=== PATIENT | male | born 1970 | race Caucasian/White ===

== ENCOUNTER 2024-03-13 19:23 | Emergency (ER) | payer OTHER ==
--- NOTE | 2024-03-13 20:16 | ED ---
Extremity Problem HPI - General Source: patient, RN notes reviewed Mode of arrival: ambulatory Limitations: no limitations <Olivia Jeffers - Last Filed: 03/13/24 20:15> <Glendy Bauer - Last Filed: 03/15/24 00:20> - General Chief complaint: Extremity Problem,Nontraumatic Stated complaint: R leg pain Time Seen by Provider: 03/13/24 19:39 - History of Present Illness Initial comments: Quick [id number] male presents emergency for chief complaint of right lower extremity pain that has been worsening over the past 3 to 4 weeks. States that pain of his right calf will worsen throughout the day and is most severe at night. He denies any recent injuries or falls. Denies history of DVT, PE, or blood clotting disorders. He is denying chest pain, shortness of breath, difficulty breathing. (Olivia Jeffers) 53-year-old presents emergency department for right lower extremity pain. S tates has been going on for 3 weeks. He denies any injuries. States that the pain starts in his anterior knee, wraps around to the posterior aspect and down the back of his calf. The pain is worse throughout the day but states that when he gets home and lays down at night, his swelling goes away. No history of DVT or PE. Denies any chest pain or shortness of breath. No redness or warmth to t he extremity. He has not been taking anything for pain control. No other alleviating, precipitating modifying (Glendy Bauer) - Related Data Allergies Allergy/AdvReac Type Severity Reaction Status Date / Time No Known Allergies Allergy Verified 03/13/24 19:49 Review of Systems ROS Other: All systems not noted in ROS Statement are negative. <Olivia Jeffers - Last Filed: 03/13/24 20:15> ROS Other: All systems not noted in ROS Statement are negative. <Glendy Bauer - Last Filed: 03/15/24 00:20> ROS Statement: Those systems with pertinent positive or pertinent negative responses have been documented in the HPI. Past Medical History Past Medical History: No Reported History Past Surgical History: No Surgical Hx Reported Smoking Status: Never smoker <Olivia Jeffers - Last Filed: 03/13/24 20:15> General Exam Limitations: no limitations <Olivia Jeffers - Last Filed: 03/13/24 20:15> General appearance: alert, in no apparent distress Extremities exam: Present: other (Mild joint effusion. No redness or warmth. 2+ DP and PT pulses. Compartments are soft. Full normal range of motion at the hip and ankle. Intact sensation over the medial, lateral and dorsal bilateral lower extremities.) <Glendy Bauer - Last Filed: 03/15/24 00:20> - General Exam Comments Initial Comments: Visual Physical Exam Vital signs reviewed General: Well-appearing, nontoxic, no acute distress. Head: Normocephalic, atraumatic Eyes: PERRLA, EOMI ENT: Airway patent Chest: Nonlabored breathing Skin: No visual rash, normal skin tone Neuro: Alert and oriented 3 Musculoskeletal: No gross abnormalities (Olivia Jeffers) Course Vital Signs 03/13/24 03/13/24 19:46 22:39 Temperature 98.7 F 97.8 F Pulse Rate 76 60 Respiratory 16 18 Rate Blood Pressure 144/69 134/78 O2 Sat by Pulse 98 100 Oximetry Medical Decision Making <Olivia Jeffers - Last Filed: 03/13/24 20:15> <Glendy Bauer - Last Filed: 03/15/24 00:20> - Medical Decision Making I completed the quick note portion of this chart signed Olivia Jeffers PA-C (Olivia Jeffers) Was pt. sent in by a medical professional or institution ([facility], BUSINESS COORDINATOR, urgent care, hospital, or detention...) When possible be specific @ -No Did you speak to anyone other than the patient for history (EMS, parent, family, police, friend...)? What history was obtained from this source @ -No Did you review nursing and triage notes (agree or disagree)? Why? @ -I reviewed and agree with nursing and triage notes Were old charts reviewed (outside hosp., previous admission, EMS record, old EKG, old radiological studies, urgent care reports/EKG's, detention records)? Report findings @ -No old charts were reviewed Differential Diagnosis (chest pain, altered mental status, abdominal pain women, abdominal pain men, vaginal bleeding, weakness, fever, dyspnea, syncope, headache, dizziness, GI bleed, back pain, seizure, CVA, palpatations, mental health, musculoskeletal)? @ -Differential Musculoskeletal Muscular strain, contusion, ligament sprain, fracture, arthritis, septic arthritis, bursitis, cellulitis, muscle spasm, nerve compression, DVT, arterial occlusion, herpes zoster, electrolyte abnormality, tumor.... This is not meant to be in all inclusive list EKG interpreted by me (3pts min.). @ -Not done X-rays interpreted by me (1pt min.). @ -None done CT interpreted by me (1pt min.). @ -None done U/S interpreted by me (1pt. min.). @ -Yes and demonstrates no DVT What testing was considered but not performed or refused? (CT, X-rays, U/S, labs)? Why? @ -X-ray was recommended however patient refused What meds were considered but not given or refused? Why? @ -None Did you discuss the management of the patient with other professionals (professionals i.e. , PA, BUSINESS COORDINATOR, lab, RT, psych nurse, social media strategist, distiller, teacher, army officer, major case detective)? Give summary @ -No Was smoking cessation discussed for >3mins.? @ -No Was critical care preformed (if so, how long)? @ -No Were there social determinants of health that impacted care today? How? (Homelessness, low income, unemployed, alcoholism, drug addiction, transportation, low edu. Level, literacy, decrease access to med. care, residential, rehab)? @ -No Was there de-escalation of care discussed even if they declined (Discuss DNR or withdrawal of care, Hospice)? DNR status @ -No What co-morbidities impacted this encounter? (DM, HTN, Smoking, COPD, CAD, Cancer, CVA, ARF, Chemo, Hep., AIDS, mental health diagnosis, sleep apnea, morbid obesity)? @ -None Was patient admitted / discharged? Hospital course, mention meds given and route, prescriptions, significant lab abnormalities, going to OR and other pertinent info. @ -Upon arrival patient seen and evaluated in room 29. Thorough history and physical exam was performed. Ultrasound was performed which demonstrates no DVT. I did discuss results with the patient. Recommended x-ray however patient refused as he did not want to wait for any more testing. At this time patient will be discharged home. Instructed to follow-up with his doctor. Will likely need x-rays and possibly orthopedic follow-up. Instructed to return for any new or worsening symptoms. Patient agreeable to the plan was discharged in stable condition Undiagnosed new problem with uncertain prognosis? @ -No Drug Therapy requiring intensive monitoring for toxicity (Heparin, Nitro, Insulin, Cardizem)? @ -No Were any procedures done? @ -No Diagnosis/symptom? @ -Acute right calf pain Acute, or Chronic, or Acute on Chronic? @ -Acute Uncomplicated (without systemic symptoms) or Complicated (systemic symptoms)? @ -Uncomplicated Side effects of treatment? @ -No Exacerbation, Progression, or Severe Exacerbation? @ -No Poses a threat to life or bodily function? How? (Chest pain, [place], [place], pneumonia, PE, COPD, DKA, ARF, appy, cholecystitis, CVA, Diverticulitis, Homicidal, Suicidal, threat to staff... and all critical care pts) @ -No (Glendy Bauer) Disposition <Olivia Jeffers - Last Filed: 03/13/24 20:15> Is patient prescribed a controlled substance at d/c from ED?: No Time of Disposition: 22:50 <Glendy Bauer - Last Filed: 03/15/24 00:20> Clinical Impression: Right leg pain Disposition: HOME SELF-CARE Condition: Stable Instructions (If sedation given, give patient instructions): Leg Pain (ED) Additional Instructions: You ultrasound was negative Referrals: Cornelia Sepulveda MD [Primary Care Provider] - 1-2 days Preet Langston MD [Medical Doctor] - 1-2 days
--- NOTE | 2024-03-13 21:10 | US ---
EXAMINATION TYPE: US venous doppler duplex LE RT DATE OF EXAM: 03/13/2024 8:36 PM COMPARISON: NONE CLINICAL INDICATION: Male, 53 years old with history of leg pain swelling right lower leg; Patient st dev right lower leg pain and swelling. No hx dvt. Not on thinners TECHNIQUE: The lower extremity deep venous system is examined utilizing real time linear array sonog bobby with graded compression, color doppler sonography, and spectral doppler. SIDE PERFORMED: Right FINDINGS: VESSELS IMAGED: Common Femoral Vein Deep Femoral Vein Greater Saphenous Vein * Femoral Vein Popliteal Vein Small Saphenous Vein * Proximal Calf Veins (* superficial vessels) Right Leg: Appears negative for DVT today Grayscale, color doppler, spectral doppler imaging performed of the deep veins of the lower extremiti es. IMPRESSION: [facility], , 03/13/2024 9:07 PM
[2024-03-13 22:44] VITALS: BP 134/78; PULSE 60; RESP 18; TEMP 97.8
== END 2024-03-13 22:54 | disposition home or self-care (01) ==
LOC: EC 19:23
DX: M79.604 Pain in right leg (principal)
CPT/HCPCS: 99283